=== PATIENT | female | born 1975 | race Caucasian/White ===

== ENCOUNTER 2016-07-17 23:01 | Emergency (ER) | payer OTHER ==
[2016-07-18] MEDS ORDERED: ZOLOFT100 MG PO (03:03)
[2016-07-18] MEDS ORDERED: XANAX0.25 MG PO (03:04)
== END 2016-07-18 01:20 | disposition short-term general hospital (02) ==
LOC: ER 23:01
DX: R07.89 Other chest pain (principal); F41.9 Anxiety disorder, unspecified; F32.9 Major depressive disorder, single episode, unspecified; Z90.710 Acquired absence of both cervix and uterus; Z88.5 Allergy status to narcotic agent
CPT/HCPCS: J1885